=== PATIENT | male | born 1940 | race Caucasian/White ===

== ENCOUNTER 2019-08-19 11:10 | Inpatient (IN) | payer MEDICARE, OTHER ==
[~2019-08-19] VITALS: Ht 180.3 cm; Wt 112.0 kg
[2019-08-19] MEDS ORDERED: diltiazem 5mg/ml 5ml inj. IV ONE (11:20)
[2019-08-19] MEDS ORDERED: aspirin 81mg tab.chew PO ONE (11:20)
[2019-08-19] MEDS ORDERED: amiodarone 50MG/ML inj IV ONE (11:30)
[2019-08-19] MEDS ORDERED: amiodarone 150mg/dext, iso-os 100 ML IV ONE (11:40)
[2019-08-19] MEDS ORDERED: diltiazem-D5W 125mg/125ml 125 ML IV SCH (11:50)
[2019-08-19] MEDS ORDERED: diltiazem-D5W 125mg/125ml 100 ML IV SCH (11:53)
[2019-08-19 11:54] LABS: BASOPHILS % (AUTO) 0.5 % (0-1); EOSINOPHILS % (AUTO) 0.3 % (0-6); HEMATOCRIT 43.7 % (35.0-45.0); HEMOGLOBIN 14.8 g/dl (12.0-16.0); LYMPHOCYTES # (AUTO) 1.6 X10'3 (1.1-4.8); LYMPHOCYTES % (AUTO) 22.4 % (21-51); MEAN CORPUSCULAR HEMOGLOBIN 31.9 PG (27.0-31.0); MEAN CORPUSCULAR HGB CONC 33.8 g/dL (33.0-36.5); MEAN CORPUSCULAR VOLUME 94.4 FL (78-98); MEAN PLATELET VOLUME 9.4 FL (7.4-10.4); MONOCYTES # (AUTO) 0.6 X10'3 (0-0.9); MONOCYTES % (AUTO) 8.3 % (2-12); NEUTROPHILS # (AUTO) 4.9 X10'3 (1.8-7.7); NEUTROPHILS % (AUTO) 68.5 % (42-75); PLATELET COUNT 210 X10'3 (140-440); RED BLOOD COUNT 4.63 X10'6 (4.20-5.60); RED CELL DISTRIBUTION WIDTH 14.5 % (11.5-14.5); WHITE BLOOD COUNT 7.2 X10'3 (4.5-11.0)
[2019-08-19] MEDS: sodium bicarbonate inj. 50 ML in dextrose 5%-water 1,000 ML IV SCH ×2 (12:00→23:03)
[2019-08-19] MEDS ORDERED: calcium chloride inj. 1,000 MG in normal saline 100ml IV soln 100 ML IV ONE (12:00)
[2019-08-19] MEDS: diltiazem-NS 100mg/100ml 100 ML IV SCH ×3 (12:09→13:07)
[2019-08-19 12:21] LABS: ALANINE AMINOTRANSFERASE 29 U/L (12-78); ALBUMIN 3.6 G/DL (3.4-5.0); ALBUMIN/GLOBULIN RATIO 1.3 (1.1-1.5); ALKALINE PHOSPHATASE 78 IU/L (46-116); ANION GAP 8 (8-16); ASPARTATE AMINO TRANSFERASE 24 U/L (10-37); BILIRUBIN,TOTAL 0.8 MG/DL (0.1-1.0); BLOOD UREA NITROGEN 27 MG/DL (7-18); BUN/CREATININE RATIO 16.8 (6.6-38.0); CALCIUM 9.5 MG/DL (8.5-10.1); CHLORIDE 107 MMOL/L (99-107); CREATININE 1.61 MG/DL (0.40-0.90); GLUCOSE 127 MG/DL (70-104); POTASSIUM 4.1 MMOL/L (3.5-5.1); SODIUM 143 MMOL/L (135-145); TOTAL CARBON DIOXIDE 27.8 MMOL/L (24-32); TOTAL PROTEIN 6.4 G/DL (6.4-8.2); eGFR 31 ML/MIN
[2019-08-19] MEDS ORDERED: normal saline 1000ml 1,000 ML IV SCH (12:58)
[2019-08-19] MEDS ORDERED: ondansetron/PF 4mg/2ml inj IV PRN (13:00)
[2019-08-19] MEDS ORDERED: magnesium hydroxide 30ml (MOM) UD suspension PO PRN (13:00)
[2019-08-19] MEDS ORDERED: acetaminophen 325mg tablet PO PRN ×2 (13:00)
[2019-08-19] MEDS ORDERED: magnesium 2GM in 50ml NS 50 ML IV PRN (13:00)
[2019-08-19] MEDS ORDERED: potassium Cl 20 mEq SR tablet PO PRN (13:00)
[2019-08-19] MEDS ORDERED: mag hydrox/Alum hydrox/simeth 30ml oral suspension PO PRN (13:00)
[2019-08-19] MEDS ORDERED: magnesium 4gm in 100ml NS 100 ML IV PRN (13:00)
[2019-08-19] MEDS ORDERED: HYDROcodone/acetaminophen 10/325mg tab PO PRN (13:00)
[2019-08-19] MEDS ORDERED: diltiazem-NS 100mg/100ml 100 ML IV SCH (13:00)
[2019-08-19] MEDS ORDERED: potassium CL 10mEq/100ml bag 100 ML IV PRN ×2 (13:00)
[2019-08-19] MEDS ORDERED: HYDROcodone/acetaminophen 5mg/325mg tablet PO PRN (13:00)
[2019-08-19] MEDS ORDERED: magnesium Cl slow-release 64mg tablet PO PRN (13:00)
[2019-08-19] MEDS ORDERED: LISI1TAB32 PO (13:01)
[2019-08-19] MEDS ORDERED: ROSU5TAB PO (13:01)
[2019-08-19] MEDS ORDERED: FLO0.4C PO (13:01)
[2019-08-19] MEDS ORDERED: FINA5TAB11 PO (13:01)
[2019-08-19 13:22] LABS: PARTIAL THROMBOPLASTIN TIME 26 SECONDS (22-32)
[2019-08-19 13:34] LABS: PHOSPHORUS 3.5 MG/DL (2.3-4.5)
--- NOTE | 2019-08-19 15:28 | NUR ---
TIRED CALLLING REPORT TO LAURA TWICE WAITING FOR RN TO RETURN CALL
--- NOTE | 2019-08-19 15:45 | NUR ---
Patient in room MED 311. I have received report from RENE singer RN and had the opportunity to ask questions and assume patient care.
[2019-08-19] MEDS ORDERED: furosemide 40mg/4ml inj IV ONE (15:55)
[2019-08-19 16:15] VITALS: BP 123/71
--- NOTE | 2019-08-19 16:15 | NUR ---
received pt to room 311,oriented to surroundings,pt denies pain,echo cardiogram started
--- NOTE | 2019-08-19 17:45 | NUR ---
16 bulgarian zheng catheter inserted with sterile technique,without difficulty,275 cc clear dark yellow urine returned
[2019-08-19 18:00] VITALS: BP 107/80
[2019-08-19] MEDS ORDERED: furosemide 20 MG/2 ML vial IV SCH (20:00)
[2019-08-19] MEDS: K and/or MAG REPLACEMENT MC SCH (20:00)
[2019-08-19] MEDS ORDERED: enoxaparin 100mg/ml syringe SUBCUT SCH (20:00)
[2019-08-19] MEDS: furosemide 20 MG/2 ML vial IV SCH (20:11)
[2019-08-19] MEDS: enoxaparin 80mg/0.8ml syringe SUBCUT SCH (20:12)
[2019-08-19] MEDS: enoxaparin 30mg/0.3ml syringe SUBCUT SCH (20:12)
[2019-08-19] MEDS ORDERED: temazepam 15mg capsule PO PRN (21:00)
[2019-08-19 22:00] VITALS: BP 94/68
[2019-08-20] MEDS: diltiazem-NS 100mg/100ml 100 ML IV SCH (01:40)
[2019-08-20 02:00] VITALS: BP 87/60
[2019-08-20 02:58] LABS: BASOPHILS # (AUTO) 0.1 X10'3 (0-0.2); BASOPHILS % (AUTO) 0.7 % (0-1); EOSINOPHILS # (AUTO) 0.2 X10'3 (0-0.9); EOSINOPHILS % (AUTO) 2.9 % (0-6); HEMATOCRIT 38.9 % (42.0-52.0); HEMOGLOBIN 13.1 g/dl (14.0-17.9); LYMPHOCYTES # (AUTO) 2.1 X10'3 (1.1-4.8); LYMPHOCYTES % (AUTO) 26.4 % (21-51); MEAN CORPUSCULAR HEMOGLOBIN 31.8 PG (27.0-31.0); MEAN CORPUSCULAR HGB CONC 33.7 g/dL (33.0-36.5); MEAN CORPUSCULAR VOLUME 94.3 FL (78-98); MEAN PLATELET VOLUME 9.7 FL (7.4-10.4); MONOCYTES # (AUTO) 0.7 X10'3 (0-0.9); MONOCYTES % (AUTO) 8.6 % (2-12); NEUTROPHILS # (AUTO) 4.8 X10'3 (1.8-7.7); NEUTROPHILS % (AUTO) 61.4 % (42-75); PLATELET COUNT 188 X10'3 (140-440); RED BLOOD COUNT 4.12 X10'6 (4.70-6.10); RED CELL DISTRIBUTION WIDTH 14.7 % (11.5-14.5); WHITE BLOOD COUNT 7.8 X10'3 (4.5-11.0)
[2019-08-20 03:13] LABS: ALANINE AMINOTRANSFERASE 26 U/L (12-78); ALBUMIN 3.1 G/DL (3.4-5.0); ALBUMIN/GLOBULIN RATIO 1.2 (1.1-1.5); ALKALINE PHOSPHATASE 66 IU/L (46-116); ANION GAP 8 (8-16); ASPARTATE AMINO TRANSFERASE 23 U/L (10-37); BILIRUBIN,TOTAL 0.7 MG/DL (0.1-1.0); BLOOD UREA NITROGEN 26 MG/DL (7-18); BUN/CREATININE RATIO 17.4 (5.4-32.0); CALCIUM 8.8 MG/DL (8.5-10.1); CHLORIDE 106 MMOL/L (99-107); CHOL/HDL RATIO 1.9 (0.00-4.99); CHOLESTEROL 87 MG/DL (0-200); CREATININE 1.49 MG/DL (0.60-1.10); GLUCOSE 100 MG/DL (70-104); HDL CHOLESTEROL 45 MG/DL (35-60); LDL CHOLESTEROL 36 MG/DL (50-100); MAGNESIUM 1.8 MG/DL (1.5-2.4); POTASSIUM 3.1 MMOL/L (3.5-5.1); SODIUM 142 MMOL/L (135-145); TOTAL CARBON DIOXIDE 28.2 MMOL/L (24-32); TOTAL PROTEIN 5.7 G/DL (6.4-8.2); TRIGLYCERIDES 36 MG/DL (20-135); eGFR 45 ML/MIN
[2019-08-20 06:00] VITALS: BP 97/71
--- NOTE | 2019-08-20 06:00 | NUR ---
Patient in room MED 311. I have received report from Mandeep BENSON and had the opportunity to ask questions and assume patient care.
[2019-08-20] MEDS: furosemide 20 MG/2 ML vial IV SCH ×2 (07:35→20:56)
[2019-08-20] MEDS: enoxaparin 80mg/0.8ml syringe SUBCUT SCH (07:35)
[2019-08-20] MEDS: potassium Cl 20 mEq SR tablet PO PRN ×3 (07:35→20:53)
[2019-08-20] MEDS: enoxaparin 30mg/0.3ml syringe SUBCUT SCH (07:36)
[2019-08-20] MEDS: K and/or MAG REPLACEMENT MC SCH ×2 (08:00→20:57)
[2019-08-20] MEDS: sodium bicarbonate inj. 50 ML in dextrose 5%-water 1,000 ML IV SCH (09:11)
[2019-08-20] MEDS: amiodarone 200mg tablet PO SCH ×2 (10:37→20:53)
[2019-08-20] MEDS: carVEDilol 3.125mg tablet PO SCH ×2 (10:37→20:53)
[2019-08-20 11:00] VITALS: BP 93/71
[2019-08-20 15:00] VITALS: BP 96/66
[2019-08-20 18:00] VITALS: BP 93/69
--- NOTE | 2019-08-20 18:12 | NUR ---
Problems reprioritized. Patient report given, questions answered & plan of care reviewed with Mandeep BENSON.
[2019-08-20] MEDS: apixaban 5mg tablet PO SCH (20:53)
[2019-08-20] MEDS: docusate sod 100mg capsule PO SCH (20:53)
[2019-08-20 22:00] VITALS: BP 123/32
[2019-08-21] VITALS (8 sets, daily range): BP systolic 79–104; BP diastolic 52–73
[2019-08-21 03:15] LABS: BASOPHILS % (AUTO) 0.7 % (0-1); EOSINOPHILS # (AUTO) 0.1 X10'3 (0-0.9); EOSINOPHILS % (AUTO) 1.5 % (0-6); HEMATOCRIT 40.6 % (42.0-52.0); HEMOGLOBIN 13.6 g/dl (14.0-17.9); LYMPHOCYTES # (AUTO) 1.7 X10'3 (1.1-4.8); LYMPHOCYTES % (AUTO) 24.6 % (21-51); MEAN CORPUSCULAR HEMOGLOBIN 31.9 PG (27.0-31.0); MEAN CORPUSCULAR HGB CONC 33.6 g/dL (33.0-36.5); MEAN CORPUSCULAR VOLUME 95.1 FL (78-98); MEAN PLATELET VOLUME 9.9 FL (7.4-10.4); MONOCYTES # (AUTO) 0.7 X10'3 (0-0.9); MONOCYTES % (AUTO) 9.3 % (2-12); NEUTROPHILS # (AUTO) 4.5 X10'3 (1.8-7.7); NEUTROPHILS % (AUTO) 63.9 % (42-75); PLATELET COUNT 176 X10'3 (140-440); RED BLOOD COUNT 4.27 X10'6 (4.70-6.10); RED CELL DISTRIBUTION WIDTH 14.4 % (11.5-14.5)
[2019-08-21 03:39] LABS: ALANINE AMINOTRANSFERASE 24 U/L (12-78); ALBUMIN 3.1 G/DL (3.4-5.0); ALBUMIN/GLOBULIN RATIO 1.1 (1.1-1.5); ALKALINE PHOSPHATASE 73 IU/L (46-116); ANION GAP 8 (8-16); ASPARTATE AMINO TRANSFERASE 26 U/L (10-37); BILIRUBIN,TOTAL 0.8 MG/DL (0.1-1.0); BLOOD UREA NITROGEN 28 MG/DL (7-18); BUN/CREATININE RATIO 18.4 (5.4-32.0); CALCIUM 8.6 MG/DL (8.5-10.1); CHLORIDE 103 MMOL/L (99-107); CREATININE 1.52 MG/DL (0.60-1.10); GLUCOSE 101 MG/DL (70-104); MAGNESIUM 1.8 MG/DL (1.5-2.4); PHOSPHORUS 3.9 MG/DL (2.3-4.5); POTASSIUM 3.8 MMOL/L (3.5-5.1); SODIUM 140 MMOL/L (135-145); TOTAL CARBON DIOXIDE 28.8 MMOL/L (24-32); TOTAL PROTEIN 5.9 G/DL (6.4-8.2); eGFR 44 ML/MIN
--- NOTE | 2019-08-21 06:00 | NUR ---
Patient in room MED 311. I have received report from MARCELINO Kaufman and had the opportunity to ask questions and assume patient care.
[2019-08-21] MEDS ORDERED: magnesium 2GM in 50ml NS 50 ML IV ONE (06:15)
--- NOTE | 2019-08-21 06:30 | NUR ---
Problems reprioritized. Patient report given to Johanna, questions answered & plan of care reviewed with .
[2019-08-21] MEDS: K and/or MAG REPLACEMENT MC SCH ×2 (08:00→20:00)
[2019-08-21] MEDS: furosemide 20 MG/2 ML vial IV SCH ×2 (08:28→19:52)
[2019-08-21] MEDS: apixaban 5mg tablet PO SCH ×2 (08:28→19:52)
[2019-08-21] MEDS: amiodarone 200mg tablet PO SCH ×2 (08:28→19:52)
[2019-08-21] MEDS: docusate sod 100mg capsule PO SCH ×2 (08:28→19:52)
[2019-08-21] MEDS: carVEDilol 3.125mg tablet PO SCH ×2 (10:03→19:54)
--- NOTE | 2019-08-21 12:48 | NUR ---
Paged Dr. Mcclendon regarding med rec: "PAGER ID: [phone] MESSAGE: 311 R. F. Please reconcile home medications. Thanks Johanna ACCE [id number]"
--- NOTE | 2019-08-21 13:20 | NUR ---
Patient had a 12-beat run of VTach at 1315. Paged Dr. Mcclendon: "PAGER ID: [phone] MESSAGE: 311 R. FLowell SALCEDO patient just had a 12 beat run of V Tach at 1315. Patient asymptomatic. Johanna ACCE [id number]."
[2019-08-21] MEDS ORDERED: FURO-150 PO (15:35)
[2019-08-21] MEDS ORDERED: POTA10TA36 PO (15:35)
[2019-08-21] MEDS ORDERED: COR3.125T PO (15:35)
[2019-08-21] MEDS ORDERED: MAGN64TA8 PO (15:35)
--- NOTE | 2019-08-21 16:30 | NUR ---
Spoke with Dr. Mcclendon regarding plan of care: Once life vest is delivered, patient may discharge. Informed of 12-beat run of V tach, no new orders received.
[2019-08-21] MEDS ORDERED: AMIO200T61 PO (17:29)
[2019-08-21] MEDS ORDERED: APIX5TAB3 PO (17:29)
--- NOTE | 2019-08-21 17:40 | NUR ---
"PAGER ID: [phone] MESSAGE: RM 311 R. F. Patient is requesting to stay one more night, he cannot coordinate a ride for tonight; life vest hasn't been delivered yet. OK to discharge in the AM? Thanks, Johanna ACEVEDO [id number]"
--- NOTE | 2019-08-21 17:49 | NUR ---
Per Dr. Mcclendon, patient can stay one more night before discharge per patient request.
--- NOTE | 2019-08-21 18:07 | NUR ---
Problems reprioritized. Patient report given, questions answered & plan of care reviewed with MARCELINO Kaufman.
[2019-08-22 02:00] VITALS: BP 91/58
[2019-08-22 03:55] LABS: BASOPHILS % (AUTO) 0.6 % (0-1); EOSINOPHILS # (AUTO) 0.1 X10'3 (0-0.9); EOSINOPHILS % (AUTO) 1.4 % (0-6); HEMATOCRIT 42.1 % (42.0-52.0); HEMOGLOBIN 14.1 g/dl (14.0-17.9); LYMPHOCYTES # (AUTO) 1.8 X10'3 (1.1-4.8); LYMPHOCYTES % (AUTO) 31.4 % (21-51); MEAN CORPUSCULAR HEMOGLOBIN 31.7 PG (27.0-31.0); MEAN CORPUSCULAR HGB CONC 33.6 g/dL (33.0-36.5); MEAN CORPUSCULAR VOLUME 94.2 FL (78-98); MEAN PLATELET VOLUME 9.8 FL (7.4-10.4); MONOCYTES # (AUTO) 0.6 X10'3 (0-0.9); MONOCYTES % (AUTO) 10.8 % (2-12); NEUTROPHILS # (AUTO) 3.2 X10'3 (1.8-7.7); NEUTROPHILS % (AUTO) 55.8 % (42-75); PLATELET COUNT 188 X10'3 (140-440); RED BLOOD COUNT 4.47 X10'6 (4.70-6.10); RED CELL DISTRIBUTION WIDTH 14.4 % (11.5-14.5); WHITE BLOOD COUNT 5.8 X10'3 (4.5-11.0)
[2019-08-22 04:21] LABS: ALANINE AMINOTRANSFERASE 30 U/L (12-78); ALBUMIN/GLOBULIN RATIO 1.1 (1.1-1.5); ALKALINE PHOSPHATASE 73 IU/L (46-116); ANION GAP 9 (8-16); ASPARTATE AMINO TRANSFERASE 24 U/L (10-37); BILIRUBIN,TOTAL 0.8 MG/DL (0.1-1.0); BLOOD UREA NITROGEN 34 MG/DL (7-18); BUN/CREATININE RATIO 20.5 (5.4-32.0); CALCIUM 8.5 MG/DL (8.5-10.1); CHLORIDE 103 MMOL/L (99-107); CREATININE 1.66 MG/DL (0.60-1.10); GLUCOSE 108 MG/DL (70-104); MAGNESIUM 2.2 MG/DL (1.5-2.4); PHOSPHORUS 4.1 MG/DL (2.3-4.5); POTASSIUM 3.8 MMOL/L (3.5-5.1); SODIUM 140 MMOL/L (135-145); TOTAL CARBON DIOXIDE 27.8 MMOL/L (24-32); TOTAL PROTEIN 5.8 G/DL (6.4-8.2); eGFR 40 ML/MIN
[2019-08-22 06:00] VITALS: BP 87/63
--- NOTE | 2019-08-22 06:05 | NUR ---
Patient in room MED 311. I have received report from MARCELINO Kaufman and had the opportunity to ask questions and assume patient care.
--- NOTE | 2019-08-22 06:14 | NUR ---
Problems reprioritized. Patient report given to Zohra, questions answered & plan of care reviewed with .
[2019-08-22] MEDS: furosemide 20 MG/2 ML vial IV SCH (07:31)
[2019-08-22] MEDS: apixaban 5mg tablet PO SCH (07:32)
[2019-08-22] MEDS: carVEDilol 3.125mg tablet PO SCH (07:32)
[2019-08-22] MEDS: K and/or MAG REPLACEMENT MC SCH (07:32)
[2019-08-22] MEDS: docusate sod 100mg capsule PO SCH (07:32)
[2019-08-22] MEDS: amiodarone 200mg tablet PO SCH (07:32)
[2019-08-22] MEDS ORDERED: finasteride 5mg tablet PO SCH (08:00)
[2019-08-22] MEDS ORDERED: tamsulosin 0.4mg capsule PO SCH (08:00)
[2019-08-22] MEDS ORDERED: atorvastatin 10mg tablet PO SCH (08:00)
[2019-08-22 09:30] VITALS: BP 106/56
--- NOTE | 2019-08-22 10:12 | NUR ---
Patient stable for discharge per MD orders. Rx given to patient, [facility]. All discharge instructions reviewed with patient and all questions answered. PIVs discontinued, cannulas intact. Clean, dry dressings in place. security monitor removed. Life Vest on patient at time of discharge, patient verbally taught back Life Vest education and demonstrated competence with device. All personal belongings collected and sent with patient. Patient wheeled to private vehicle by RN at 1005 to be transported home by family.
== END 2019-08-22 10:00 | disposition home health service (06) | DRG 291 ==
LOC: ER 11:10 → ED HOLD 12:58 → EDSEX 12:58 → MED 3N 16:13
PROVIDERS: ADMIT Family Medicine; ATTEND Family Medicine
DX: I13.0 Hypertensive heart and chronic kidney disease with heart failure and stage 1 through stage 4 chronic kidney disease, or unspecified chronic kidney disease (principal); I50.21 Acute systolic (congestive) heart failure; N13.8 Other obstructive and reflux uropathy; N17.9 Acute kidney failure, unspecified; I48.91 Unspecified atrial fibrillation; M72.2 Plantar fascial fibromatosis; F17.220 Nicotine dependence, chewing tobacco, uncomplicated; D36.9 Benign neoplasm, unspecified site; H35.379 Puckering of macula, unspecified eye; K57.90 Diverticulosis of intestine, part unspecified, without perforation or abscess without bleeding; I42.9 Cardiomyopathy, unspecified; E87.6 Hypokalemia; D64.9 Anemia, unspecified; E78.00 Pure hypercholesterolemia, unspecified; E78.5 Hyperlipidemia, unspecified; N18.9 Chronic kidney disease, unspecified; N40.1 Benign prostatic hyperplasia with lower urinary tract symptoms; Z79.899 Other long term (current) drug therapy; Z98.49 Cataract extraction status, unspecified eye; Z71.6 Tobacco abuse counseling
CPT/HCPCS: 36415; 71045; 80053; 80061; 83735; 83880; 84100; 84443; 84484; 85025; 85610; 85730; 87081; 93005; 93306; 96374; 96375; 99291; G0378; J0282; J1650; J1940; J3475; J3490; J7070